=== PATIENT | male | born 1960 | race Caucasian/White ===

== ENCOUNTER → 2021-08-21 14:19 | Outpatient (CLI) | payer BC, SELFPAY ==
--- NOTE | 2021-08-21 14:36 | XR_ITS ---
FINAL REPORT CLINICAL HISTORY: Acute LT HEEL PAIN FINDINGS: LEFT FOOT Three views of the left foot demonstrate no acute fracture or dislocation. The visualized joint spaces are normally aligned. The soft tissues are unremarkable. IMPRESSION: No acute bony abnormality. Reviewed, Interpreted and Dictated by Rubio Torres MD Transcribed by Megan Miranda Authenticated by Rubio Torres MD on 08/21/2021 04:36:44 PM [facility]
== END ==
PROVIDERS: PCP Family Medicine; Visit Provider Family Medicine
DX: M79.672 Pain in left foot (principal)
CPT/HCPCS: 73630

== ENCOUNTER 2025-02-12 07:30 | Day surgery (SDC) | payer BC, SELFPAY ==
[2025-02-07 13:59] VITALS: BMI 29.5
[2025-02-12 08:28] VITALS: BP 138/96; PULSE 56; RESP 18; TEMP 36.3; O2SAT 97
[2025-02-12] MEDS: PHENYLEPHRINE 2.5% OPHTH SOLN 2ML OP ×3 (08:30→08:40)
[2025-02-12] MEDS: TETRACAINE 0.5% OPTH SOL 15ML OP ×3 (08:30→08:40)
[2025-02-12] MEDS: CYCLOPENTOLATE 2% OPHTH SOLN 2ML BOTTLE OP ×3 (08:30→08:40)
[2025-02-12 09:15] VITALS: BP 130/91; PULSE 55; RESP 16; O2SAT 96
[2025-02-12] MEDS: MIDAZOLAM 2MG/2ML VIAL 1 MG IV (09:16)
[2025-02-12] MEDS: TIMOLOL 0.5% OPTH SOLN 5ML OP (09:17)
[2025-02-12] MEDS: LIDOCAINE 1% PF 2ML VIAL 2 ML IJ (09:17)
[2025-02-12] MEDS: TOBRAMYCIN/DEX OPTH SUSP 2.5ML OP (09:17)
[2025-02-12 09:20] VITALS: BP 137/95; PULSE 53; RESP 16; O2SAT 96
[2025-02-12 09:25] VITALS: BP 132/89; PULSE 54; RESP 16; O2SAT 96
[2025-02-12 09:29] VITALS: BP 131/89; PULSE 52; RESP 16; O2SAT 97
[2025-02-12 09:36] VITALS: BP 140/104; PULSE 54; RESP 17; TEMP 36.7; O2SAT 97
--- NOTE | 2025-02-12 11:19 | P.PCN_ITS ---
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 The patient reports that this interferes with ADLs such as reading, watching TV and/or driving or the vision is like looking through a foggy haze and is very troubling. The patient was examined and found to have a visually significant cataract with best corrected vision of [20/400] by refraction and/or glare testing. Treatment options, risks and benefits were explained and the patient elected to have cataract surgery in an attempt to improve their vision. The patient had the eye anesthetized with topical tetracaine, the eye ways prepped and draped in the usual fashion for cataract surgery. A paracentesis and a temporal keratotomy were made. 0.2cc of 1% lidocaine PF was placed into the anterior chamber. And aqueous/viscoelastic exchange was done and a 360 degree capsulorexis was performed. Through hydrodissection and delineation with BSS on a cannula was done. The lens nucleus was phecoemulsified with CDE of [5.43]. Residual cortical material was removed using automated I&A The capsular bag was deepened with viscoelastica and a PCIOL was placed in the capsular bag with good centration and stability. Residual viscoelastic was removed using automated I&A. The keratotomy incision was hydrated with BSS on a cannula. The wound were checked and found to be water tight. IOP was checked digitally and adjusted as needed so as not to be too high. 1 drop of timolol 0.5%, ofloxacin, prednisolone acetate and ketorolac was instilled and eye shield taped over the eye. The patient was taken to recovery in good condition and will be seen postoperatively.
== END 2025-02-12 09:38 | disposition home or self-care (01) ==
LOC: OR 07:32
PROVIDERS: PCP Family Medicine; Visit Provider Ophthalmology
PROC: (CPT 66982; principal; 2025-02-12 09:00)
DX: H25.811 Combined forms of age-related cataract, right eye (principal); H02.836 Dermatochalasis of left eye, unspecified eyelid; H02.833 Dermatochalasis of right eye, unspecified eyelid
CPT/HCPCS: 66982; J2250; V2632